=== PATIENT | male | born 1960 | race Two or more races ===

== ENCOUNTER 2019-04-21 19:50 | Emergency (ER) | payer OTHER ==
[~2019-04-21] VITALS: Ht 154.9 cm; Wt 62.7 kg
[2019-04-21] MEDS ORDERED: HYDR25TA PO (20:11)
[2019-04-21] MEDS ORDERED: LISI-660 PO (20:11)
[2019-04-21 20:37] VITALS: BP 135/86
== END 2019-04-21 21:26 | disposition home or self-care (01) ==
LOC: EMS 19:53
DX: S46.812A Strain of other muscles, fascia and tendons at shoulder and upper arm level, left arm, initial encounter (principal); I10 Essential (primary) hypertension; Z79.899 Other long term (current) drug therapy; Z88.0 Allergy status to penicillin; V49.9XXA Car occupant (driver) (passenger) injured in unspecified traffic accident, initial encounter; Y93.89 Activity, other specified; Y92.488 Other paved roadways as the place of occurrence of the external cause; Y99.8 Other external cause status

== ENCOUNTER 2020-11-25 10:49 | Emergency (ER) | payer OTHER ==
[~2020-11-25] VITALS: Ht 149.9 cm; Wt 59.1 kg
[~2020-11-25 10:49] MED LIST: HYDR25TA2 PO; LISI-892 PO
[2020-11-25 14:33] VITALS: BP 121/75
== END 2020-11-25 14:40 | disposition home or self-care (01) ==
LOC: EMS 10:53
DX: S43.151A Posterior dislocation of right acromioclavicular joint, initial encounter (principal); I10 Essential (primary) hypertension; Z88.0 Allergy status to penicillin; Z79.899 Other long term (current) drug therapy; V43.52XA Car driver injured in collision with other type car in traffic accident, initial encounter; Y93.89 Activity, other specified; Y92.89 Other specified places as the place of occurrence of the external cause; Y99.8 Other external cause status
CPT/HCPCS: 99284; 73030-TC; 73060-TC; Z7502

== ENCOUNTER 2021-08-04 19:38 | Emergency (ER) | payer OTHER ==
[~2021-08-04] VITALS: Ht 149.9 cm; Wt 70.0 kg
[2021-08-04] MEDS ORDERED: ACETAMINOPHEN 500 MG TABLET PO ONE (20:45)
[2021-08-04 21:01] VITALS: BP 143/67
== END 2021-08-04 21:41 | disposition home or self-care (01) ==
LOC: EMS 19:47
DX: S80.02XA Contusion of left knee, initial encounter (principal); S00.83XA Contusion of other part of head, initial encounter; I10 Essential (primary) hypertension; Z88.0 Allergy status to penicillin; Z79.899 Other long term (current) drug therapy; W22.8XXA Striking against or struck by other objects, initial encounter; Y93.89 Activity, other specified; Y92.89 Other specified places as the place of occurrence of the external cause; Y99.8 Other external cause status
CPT/HCPCS: 29530; 99283